=== PATIENT | female | born 1970 | race Caucasian/White ===

== ENCOUNTER 2024-07-03 11:30 | Emergency (ER) | payer MEDICAID, SELFPAY ==
--- NOTE | 2024-07-03 11:45 | PD.EDMEDCL ---
ED Medical Clearance E/HPI General Chief complaint: General Adult/Misc Complain Stated complaint: DETENTION CHECK Time Seen by Provider: 07/03/24 11:42 Arrival date/time: 07/03/24 11:30 RME / HPI RME / HPI Narrative: 54-year-old female patient with significant history of hypertension, was brought in by law enforcement for medical clearance. Patient told me that for the last 1 year, she stopped taking her blood pressure medication. She admits of abusing meth, last use was last night. Currently she is not having any complaints. No headache no chest pain no neck pain. Her blood pressure was noted to be overall 190 systolic. Related Information Previous Rx's ?Medication ?Instructions ?Recorded amlodipine 10 mg tablet 10 mg PO QDAY #30 tabs 01/12/21 lisinopril 10 mg tablet 10 mg PO QDAY #30 tabs 01/12/21 quetiapine 50 mg tablet (Seroquel) 50 mg PO BID #60 tabs 01/12/21 Allergies Allergy/AdvReac Type Severity Reaction Status Date / Time morphine Allergy Severe Hives Verified 12/28/20 07:06 Review of Systems Review of Systems Narrative Review of Systems: Review of system reviewed and within normal limits except mentioned in HPI ED Exam Narrative Physical exam: VITAL SIGNS: Reviewed. GENERAL APPEARANCE: Alert and interactive, follows commands, no acute distress, HEAD AND FACE: Non-traumatic. ENT: PERRL, pink conjunctivitis, eyelid no trauma, Mucous membrane moist. NECK: Supple, nontender, no nuchal rigidity. CHEST: No tenderness, no crepitus, no paradoxical movement, no retractions. LUNGS: Clear, well ventilated, symmetric, no rales, no wheezing, no ronchi, no stridor, good breath sounds bilaterally. HEART: Regular rate, regular rhythm, no murmur, no gallops. ABDOMEN: Soft, positive bowel sounds, nondistended, no guarding, nontender, no rebound, no masses, RECTAL: Deferred. GENITAL: Deferred. NEUROLOGICAL: Gross motor function intact sensory function intact, Appropriate for age. MUSCULOSKELETAL: low back nontender, full range of motion. EXTREMITIES: Nontender, full range of motion. SKIN: Color pink, dry, no rash, no lacerations, no abrasions, no contusions. LYMPHATICS: Deferred. Course Quality Measures none Orders Category Date Time Status NIFEdipine [Procardia] Med 07/03/24 11:45 Discontinued 20 mg PO X1 ONE Vital Signs Vital signs: Vital Signs Temperature 98.2 F 07/03/24 11:59 Pulse Rate 103 H 07/03/24 11:59 Respiratory Rate 18 07/03/24 11:59 Blood Pressure 194/91 H 07/03/24 11:59 Pulse Oximetry (%) 97 07/03/24 11:59 Oxygen Delivery Method Room Air 07/03/24 11:59 Medical Clearance MDM Narrative MDM Narrative:: 54-year-old female patient with significant history of hypertension, was brought in by law enforcement for medical clearance. Patient told me that for the last 1 year, she stopped taking her blood pressure medication. She admits of abusing meth, last use was last night. Currently she is not having any complaints. No headache no chest pain no neck pain. Her blood pressure was noted to be overall 190 systolic. Patient was given Procardia p.o. Repeat blood pressure was noted to be 162/100. Patient is not having any complaints. Patient is medically cleared for incarceration. Patient data External records reviewed:: None Clinical information provided by:: none Social determinants that could affect healthcare access:: none Patient has the following chronic illnesses:: Hypertension How is presenting disease/condition affected by chronic disease/condition?: uneffected by Evaluation data The following diagnostics were reviewed and interpreted by me:: other (specify) (None) Lab and/or radiology exams considered but not ordered:: None Interpretation Summary: None Medications / Prescriptions Medications or Prescriptions considered but not ordered:: None Medication administrations:: Medication Administration History Discontinued Medications Nifedipine (Nifedipine 10 Mg Capsule) 20 mg PO X1 ONE Stop: 07/03/24 11:46 Last Admin: 07/03/24 12:21 Dose: 20 mg Documented By: JUANJOSE Gregory Consultations Consultation(s) initiated? (list below): No Diagnosis Medical Clearance Differential Diagnosis: other (Hypertension, not on medication, medical clearance for incarceration) Most likely diagnosis given after review of the tests above:: Medical clearance for incarceration, hypertension not on medication Admission Indicated Admission indicated?: not indicated Explain why admission is indicated or not indicated:: Discharged back to prison Admission Request Was there a request for admission?: No Disposition Plan Disposition Plan: Discharge Discharge Attestation Discharge Attestation: Patient condition: Stable Discharge Plan Plan Patient Disposition: Senior Living/Court/Law Disposition Comment: Stable Prescriptions/Referrals Prescriptions/Med Rec: No Action amlodipine 10 mg tablet 10 mg PO QDAY Qty: 30 0RF quetiapine [Seroquel] 50 mg tablet 50 mg PO BID Qty: 60 0RF lisinopril 10 mg tablet 10 mg PO QDAY Qty: 30 0RF Problem List Clinical Impression: Hypertension, Medical clearance for incarceration Patient/Caregiver Discharge Instructions Discharge Activity: activity as tolerated Education Materials: Reducing Your Health Risks ... Additional Instructions: Thank you for the opportunity for serving you today. You are stable for discharged . You are advised to: Follow-up with your PCP in 1 to 2 days once you get out of prison Return to ED for worsening of symptoms Print Language: Divehi
[2024-07-03 11:59] VITALS: BP 194/91; PULSE 103; RESP 18; TEMP 36.8; O2SAT 97
[2024-07-03 12:21] VITALS: BP 194/91; PULSE 103
[2024-07-03] MEDS: NIFEdipine 10 MG CAPSULE 20 MG PO (12:21)
[2024-07-03 13:05] VITALS: BP 162/100; PULSE 104; RESP 18; TEMP 36.8; O2SAT 98
== END 2024-07-03 13:14 ==
PROVIDERS: Emergency Provider Emergency Medicine
DX: Z02.89 Encounter for other administrative examinations (principal); I10 Essential (primary) hypertension
CPT/HCPCS: 99282; A9270